=== PATIENT | female | born 1980 | race Caucasian/White ===

== ENCOUNTER 2020-11-11 20:21 | Inpatient (IN) | payer MEDICAID, OTHER ==
[~2020-11-11] VITALS: Ht 165.1 cm; Wt 67.2 kg
[2020-11-11] MEDS ORDERED: SODIUM CHLORIDE 0.9% 1,000 ML IV ONE ×2 (21:00)
[2020-11-11 21:36] LABS: BASOPHILS % 0.9 % (0.0-2.0); EOSINOPHILS % 1.2 % (0.0-5.0); HEMATOCRIT. 31.9 % (36.0-48.0); HEMOGLOBIN. 11.2 g/dL (12.0-16.0); MEAN CORPUSCULAR HEMOGLOBIN 30.9 pg (28.0-32.0); MEAN PLATELET VOLUME 11.5 fl (7.4-10.4); NEUTROPHILS % 70.9 % (40.0-76.0); PLATELET 186 x1000/uL (130-400); RED BLOOD CELL COUNT 3.62 mill/uL (4.2-5.4); RED CELL DISTRIBUTION WIDTH 13.5 % (11.6-14.6)
[2020-11-11 21:38] LABS: CHLORIDE 114 mEq/L (98-107)
[2020-11-11 21:43] LABS: PARTIAL THROMBOPLASTIN TIME 23.6 sec (23.4-31.0); PROTHROMBIN TIME 11.1 sec (9.6-11.0)
[2020-11-11] MEDS ORDERED: IOHEXOL-300 100 ML BOTTLE ONE (23:41)
[2020-11-12 00:48] LABS: BASOPHILS % 0.7 % (0.0-2.0); EOSINOPHILS % 1.1 % (0.0-5.0); HEMOGLOBIN. 9.6 g/dL (12.0-16.0); LYMPHOCYTES % 22.8 % (20.0-50.0); MEAN CORPUSCULAR HEMOGLOBIN 31.6 pg (28.0-32.0); MEAN CORPUSCULAR VOLUME 88.6 fL (81.0-99.0); MONOCYTES % 5.6 % (2.0-8.0); NEUTROPHILS % 69.8 % (40.0-76.0); PLATELET 182 x1000/uL (130-400); RED BLOOD CELL COUNT 3.05 mill/uL (4.2-5.4); RED CELL DISTRIBUTION WIDTH 13.3 % (11.6-14.6)
[2020-11-12 08:00] VITALS: BP 99/64
[2020-11-12 08:54] VITALS: BP 99/64
[2020-11-12] MEDS ORDERED: ONDANSETRON HCL 4MG/2ML INJ IV PRN (11:45)
[2020-11-12 12:00] VITALS: BP 104/59
[2020-11-12] MEDS: ACETAMINOPHEN 325MG TABLET PO PRN (14:55)
[2020-11-12 15:14] LABS: CLARITY URINE CLOUDY (CLEAR); COLOR URINE YELLOW (YELLOW); KETONES URINE NEGATIVE (NEGATIVE); LEUKOCYTE ESTERASE URINE NEGATIVE (NEGATIVE); NITRITE URINE NEGATIVE (NEGATIVE); OCCULT BLOOD URINE 2+ (NEGATIVE); PROTEIN URINE NEGATIVE (NEGATIVE); SPECIFIC GRAVITY URINE 1.005 (1.005-1.030); UROBILINOGEN URINE 0.2 E.U./dL (0.2-1.0)
[2020-11-12 15:56] LABS: CANNABINOID URINE SCREEN NEGATIVE (NEGATIVE)
[2020-11-12 15:57] LABS: *AMPHETAMINES SCREEN URINE NEGATIVE (NEGATIVE); *BARBITURATES SCREEN URINE NEGATIVE (NEGATIVE); *BENZODIAZEPINES SCREEN URINE NEGATIVE (NEGATIVE); *COCAINE SCREEN URINE NEGATIVE (NEGATIVE); METHADONE URINE SCREEN NEGATIVE (NEGATIVE); OPIATES URINE SCREEN NEGATIVE (NEGATIVE); PHENCYCLIDINE URINE SCREEN NEGATIVE (NEGATIVE)
[2020-11-12 16:00] VITALS: BP 100/63
[2020-11-12] MEDS: FERROUS SULFATE 325MG TABLET PO SCH (16:28)
[2020-11-12] MEDS: DOCUSATE SODIUM 100MG CAPSULE PO SCH (16:28)
[2020-11-12 20:00] VITALS: BP 112/68
[2020-11-13] VITALS: BP 101/71
[2020-11-13] MEDS: ACETAMINOPHEN 325MG TABLET PO PRN ×3 (00:16→21:48)
[2020-11-13 04:00] VITALS: BP 98/61
[2020-11-13] MEDS: FERROUS SULFATE 325MG TABLET PO SCH ×3 (06:24→17:44)
[2020-11-13 07:07] LABS: BASOPHILS % 0.8 % (0.0-2.0); EOSINOPHILS % 3.8 % (0.0-5.0); HEMATOCRIT. 27.4 % (36.0-48.0); HEMOGLOBIN. 9.3 g/dL (12.0-16.0); LYMPHOCYTES % 32.2 % (20.0-50.0); MEAN CORPUSCULAR HEMOGLOBIN 30.5 pg (28.0-32.0); MEAN CORPUSCULAR VOLUME 89.8 fL (81.0-99.0); MEAN PLATELET VOLUME 11.2 fl (7.4-10.4); MONOCYTES % 7.2 % (2.0-8.0); PLATELET 158 x1000/uL (130-400); RED BLOOD CELL COUNT 3.05 mill/uL (4.2-5.4); RED CELL DISTRIBUTION WIDTH 13.2 % (11.6-14.6)
[2020-11-13 07:16] LABS: CHLORIDE 110 mEq/L (98-107)
[2020-11-13 08:00] VITALS: BP 107/66
[2020-11-13] MEDS: DOCUSATE SODIUM 100MG CAPSULE PO SCH ×2 (08:46→17:44)
[2020-11-13 12:00] VITALS: BP 113/69
[2020-11-13 16:20] VITALS: BP 112/71
[2020-11-13 20:00] VITALS: BP 100/67
[2020-11-14] VITALS: BP 98/58
[2020-11-14 04:00] VITALS: BP 92/53
[2020-11-14] MEDS: FERROUS SULFATE 325MG TABLET PO SCH ×2 (07:10→13:19)
[2020-11-14 08:00] VITALS: BP 106/60
[2020-11-14] MEDS: DOCUSATE SODIUM 100MG CAPSULE PO SCH (09:00)
[2020-11-14] MEDS ORDERED: HYDROMORPHONE HCL/PF 2MG/ML CPJ IV PRN (10:00)
[2020-11-14] MEDS ORDERED: ONDANSETRON HCL 4MG/2ML INJ IV PRN (10:00)
[2020-11-14 12:00] VITALS: BP 109/64
[2020-11-14 12:08] VITALS: BP 109/62
== END 2020-11-14 14:20 | disposition home or self-care (01) | DRG 548 ==
LOC: ER 20:21 → EDBD 20:21 → 7EST 11-12 00:43 → ENRESERV 11-12 07:26
PROVIDERS: ADMIT Internal Medicine; ATTEND Internal Medicine
PROC: 10D17ZZ Extraction of Products of Conception, Retained, Via Natural or Artificial Opening (ICD-10-PCS; principal; 2020-11-14)
DX: O72.2 Delayed and secondary postpartum hemorrhage (principal); E87.8 Other disorders of electrolyte and fluid balance, not elsewhere classified; O90.81 Anemia of the puerperium; O99.285 Endocrine, nutritional and metabolic diseases complicating the puerperium; O25.3 Malnutrition in the puerperium; Z20.822 Contact with and (suspected) exposure to COVID-19; Z90.710 Acquired absence of both cervix and uterus
CPT/HCPCS: 36415; 71045; 74177; 76830; 76856; 80048; 80053; 80305; 81003; 84702; 85025; 86850; 86900; 87426; 88305; 93005; 99285; J1100; J2250; J2405; J2704; J3010; J7030; Q9967